=== PATIENT | female | born 1980 | race African-American/Black ===

== ENCOUNTER 2019-02-20 16:20 | Inpatient (IN) | payer OTHER ==
[~2019-02-20] VITALS: Ht 157.5 cm; Wt 65.8 kg
[2019-02-20 16:34] VITALS: BP 121/87
--- NOTE | 2019-02-20 16:40 | NUR ---
PT REFUSED A FLU SWAB AT THIS TIME.
[2019-02-20 17:13] LABS: HEMATOCRIT 40.5 % (37.0-47.0); HEMOGLOBIN 13.2 gm/dL (12.0-15.0); MCH 26.2 pg (26.0-34.0); MCHC 32.6 g/dL (28.0-37.0); MCV 80.4 fL (80.0-100.0); MPV 7.3 fl. (7.2-11.1); NUCLEATED RBCS 0 /100WBC; PLATELET COUNT* 346 thou/uL (150-400); RBC 5.04 mil/uL (4.20-5.00); RDW-CV 14.7 % (10.5-14.5); WBC 12.7 thou/uL (4.0-11.0)
[2019-02-20 17:22] LABS: CREATININE 1.1 mg/dL (0.6-1.3); POTASSIUM 3.8 mmol/L (3.5-5.1)
[2019-02-20 17:26] LABS: ALBUMIN 4.5 g/dL (3.4-5.0); TOTAL BILIRUBIN 0.4 mg/dL (<0.1-1.0); TOTAL PROTEIN 8.6 g/dL (6.4-8.2)
[2019-02-20 17:46] LABS: URINE BILIRUBIN NEGATIVE (Negative); URINE BLOOD 2+ (Negative); URINE CLARITY CLEAR; URINE COLOR YELLOW; URINE GLUCOSE-RANDOM NEGATIVE (Negative); URINE KETONES 2+ (Negative); URINE LEUKOCYTES-REFLEX TRACE (Negative); URINE NITRITE-REFLEX NEGATIVE (Negative); URINE PROTEIN 2+ (Negative); URINE UROBILINOGEN 0.2 E.U./dl (0.2-1.0)
[2019-02-20 17:54] LABS: MUCUS 4-6 Moderate strn/LPF (None Seen); SQUAMOUS >10 Many /LPF (0-3); URINE RBC 3-10 Few /HPF (0-2)
[2019-02-20 17:55] LABS: CASTS None Seen /LPF (None Seen); CRYSTALS None Seen /LPF (None Seen); URINE WBC-REFLEX 0-5 Rare /HPF (0-5)
[2019-02-20 18:25] LABS: ABSOLUTE LYMPHOCYTES 1.8 thou/uL (0.8-5.3); ABSOLUTE MONOCYTES 0.4 thou/uL (0.0-1.2); ABSOLUTE NEUTROPHILS 10.5 thou/uL (1.6-8.1); PLATELET ESTIMATE ADEQUATE
--- NOTE | 2019-02-20 19:41 | NUR ---
PASSENGER SERVICE MANAGER CALLED STATES PATIENT REFUSED BLOOD DRAW FOR LABORATORY SPECIMANS. ED TRAVELING SALES EXECUTIVE NOTIFIED OF THIS.
[2019-02-20 20:35] VITALS: BP 119/69
[2019-02-21 04:00] VITALS: BP 110/70
--- NOTE | 2019-02-21 06:46 | NUR ---
PATIENT ADMITTED TO ROOM 102 AT APPROXIMATELY 2044 FROM THE ER. VSS ON RA. PAIN WELL CONTROLLED. PATIENT ORIENTED TO ROOM AND POLICIES. FALL EDUCATION GIVEN AND FALL AGREEMENT SIGNED. IV FLUIDS STARTED IN RIGHT AC-NS @ 100ML/HR. PATIENT HAS REMAINED NPO SINCE MIDNIGHT. ASSESSMENT CHARTED. UROLOGY CONSULTED THIS AM. URINE STRAINED AND NO STONE RETRIEVED. PATIENT INSTRUCTED TO USE CALL LIGHT WHEN NEEDING ASSISTANCE. HOURLY ROUNDS MADE. WILL CONTINUE WITH PLAN OF CARE AND NURSING TO MONITOR.
[2019-02-21 08:00] VITALS: BP 119/79
[2019-02-21 09:01] VITALS: BP 110/70
--- NOTE | 2019-02-21 10:11 | EKG ---
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
--- NOTE | 2019-02-21 11:41 | NUR ---
ATTEMPTED TO MEET WITH PT, OFF UNIT IN SURGERY
--- NOTE | 2019-02-21 12:00 | NUR ---
PATIENT ARRIVED BACK FROM PACU AT 1145. ALERT AND ORIENTED X 4. VITAL SIGNS STABLE ON ROOM AIR. IV PATENT AND SALINE LOCKED. DENIES PAIN AND NAUSEA AT THIS TIME. CALL LIGHT WITHIN REACH. NURSING WILL CONTINUE TO MONITOR.
[2019-02-21 16:00] VITALS: BP 117/68
--- NOTE | 2019-02-21 16:47 | NUR ---
PATIENT ALERT AND ORIENTED X 4. VITAL SIGNS STABLE X 4. UP AD VIVIAN IN ROOM. IV PATENT AND SALINE LOCKED. VOIDING WITHOUT DIFFICULTY. DENIES PAIN AND NAUSEA AT THIS TIME. HOURLY ROUNDS MAINTAINED THROUGHOUT THE SHIFT. CALL LIGHT WITHIN REACH. NURSING WILL CONTINUE TO MONITOR.
[2019-02-21 17:36] VITALS: BP 117/68
[2019-02-21] MEDS ORDERED: CIPRO250 M2 PO (17:48)
[2019-02-21] MEDS ORDERED: LEVSIN0.125 MG PO (17:51)
[2019-02-21] MEDS ORDERED: IBU800 MG PO (17:53)
--- NOTE | 2019-02-21 18:45 | NUR ---
PATIENT DISCHARGED FROM UNIT AT 1830. ALERT AND ORIENTED X 4. VITAL SIGNS STABLE ON ROOM AIR. UP INDEPENDENTLY. IV DISCONTINUED. DENIES PAIN AND NAUSEA AT THIS TIME. DISCHARGE INSTRUCTIONS, MEDICATION INFORMATION, AND SCRIPTS GIVEN TO PATIENT. LEFT WITH ALL BELONGINGS. PATIENT LEFT WITH SIGNIFICANT OTHER VIA CAR.
[2019-02-21 18:47] VITALS: BP 117/68
--- NOTE | 2019-02-23 10:53 | CON ---
[address] [address] CONSULTATION Name: TORRITEODOROLITO Pacheco Room: [address]R.#: [id number] Admission: 02/20/19 Attend Phys: Rk Chacon Discharge: 02/21/19 Date of : 84 Report #: [id number] THIS REPORT FOR: //name// CC: [facility] Rk Velazquez Rubileslie Zamoranoh DATE OF SERVICE: 02/21/2019 REQUESTING PHYSICIAN: Dr. Velazquez. REASON FOR CONSULTATION: Right-sided flank pain and stone by CT. HISTORY OF PRESENT ILLNESS: This is a pleasant 38-year-old black female admitted through the Emergency Department yesterday with abdominal pain, right-sided back pain, nausea and vomiting. The patient reports that she had some chills at home, but was afebrile upon arrival. Her urinalysis was clear with the exception of a few red blood cells, again was afebrile, had a mildly elevated white blood cell count of 12.7 with no left shift and a normal creatinine of 1.1. She denies any prior history of stone disease, but had a CT scan performed that revealed a 6 mm right distal ureteral stone with possible forniceal rupture. ALLERGIES: TO LEVOTHYROXINE. PAST MEDICAL HISTORY: Significant for wisdom tooth removal. CURRENT MEDICATIONS: None. SOCIAL HISTORY: Patient does not use alcohol or drugs. REVIEW OF SYSTEMS: GENERAL: Positive for some decrease in appetite and chills. RESPIRATORY: No cough or shortness of breath. CARDIOVASCULAR: No chest pain or palpitations. GASTROINTESTINAL: Abdominal pain, nausea, vomiting, poor appetite. No diarrhea or constipation. GENITOURINARY: Has urinary frequency, flank pain. No dysuria. MUSCULOSKELETAL: Shows back pain on the right. Ten-point review of systems was reviewed, otherwise negative as per HPI or positive as per HPI. PHYSICAL EXAMINATION: GENERAL: The patient is awake and alert and oriented x 3. Blood pressure 121/87, temperature 36.4, respirations are 14. Her weight is 145 [place] [address] CONSULTATION Name: DAVID WILD Room: [address]#: [id number] Admission: 02/20/19 Attend Phys: Rk jimenez [place] Discharge: 02/21/19 Date of : 84 Report #: [id number] is currently in no acute distress, alert and oriented x 3. CHEST: Shows no evidence of respiratory distress. CARDIOVASCULAR: Regular rate and rhythm without murmur. ABDOMEN: Soft, nondistended, normoactive bowel sounds. No organomegaly or hernias. Currently, no CVA tenderness. EXTREMITIES: Moves all 4 without difficulty. NEUROLOGIC: Normal. SKIN: Normal. LABORATORY EVALUATION: As per history of present illness. CT scan was reviewed and again does reveal a 6 mm right distal ureteral stone. The patient had chills at home and does possibly have evidence of forniceal rupture and was given the options of management, which include: 1. MET. 2. MET with outpatient lithotripsy. 3. Ureteroscopic stone manipulation. ASSESSMENT AND PLAN: After consideration and discussion of the pros and cons, she has elected to proceed with ureteroscopic stone manipulation. In advance, she understands the procedure, risks, potential complications including but not limited to bleeding, infection, incomplete stone removal, need for ureteral stent, injury to the urinary tract, scar tissue formation or injury to adjacent structures. She accepts these and wishes to proceed directly with ureteroscopic stone manipulation. So, this is initial consultation with E and M and decision for surgery. <ELECTRONICALLY SIGNED> By: Chema Hernandez MD 02/23/19 1053 0912 [id number] Hernandez MD /nt
--- NOTE | 2019-02-23 10:53 | OP ---
[address] [address] OPERATIVE REPORT Name: TEODORO WILDLITO Pacheco Room: [address] M.R.#: [id number] Admission: 02/20/19 Attend Phys: Rk Chacon Discharge: 02/21/19 Date of : 84 Report #: [id number] THIS REPORT FOR: //name// CC: [facility] Rk Arnoldleslie Jeronimo DATE OF SERVICE: 02/21/2019 PREOPERATIVE DIAGNOSIS: Right ureteral obstruction. POSTOPERATIVE DIAGNOSIS: Right ureteral obstruction secondary to a 6 mm right distal ureteral stone. PROCEDURES PERFORMED: Cystoscopy, right retrograde pyelogram, right ureteroscopy with laser lithotripsy, stone basketing and JJ stent placement. SURGEON: Chema Hernandez MD COMPLICATIONS: None. FINDINGS: A 4.8 x 28 cm double-J stent in the right ureter. ANESTHETIC: General. BLOOD LOSS: None. SPECIMEN: Stone fragments to pathology. STATEMENT OF MEDICAL INDICATION: This is a 38-year-old black female admitted yesterday with severe right-sided flank pain. She reported subjective fever and chills prior to admission, but did not have any since admission. She had a slightly elevated white blood cell count, but noninfected urine and a normal creatinine. She had continued to have pain and desires to have the stone addressed this admission. We discussed the options of management including MET, ESWL, URS, and she has elected to proceed with ureteroscopic stone manipulation. In advance, we discussed the procedure, risks, potential complications including but not limited to bleeding, infection, injury to the urinary tract, incomplete removal of stone, need for additional procedures, injury to the urinary tract or adjacent structures. DESCRIPTION OF PROCEDURE: Following informed consent, the patient was taken to the operating room and placed under general anesthesia, prepped and draped in sterile fashion in dorsal lithotomy position. Cystoscopy was carried out. There was moderate edema surrounding the right intramural tunnel and some erythema surrounding the right ureteral orifice. Right [place] [address] OPERATIVE REPORT Name: DAVID WILD Room: [address] IN ..#: [id number] Admission: 02/20/19 Attend Phys: Rk Chacon Discharge: 02/21/19 Date of : 84 Report #: [id number] cannulated using a 6-Moroccan Pollack catheter. Retrograde pyelogram revealed a full column of contrast down to the level of the distal ureter. Filling defect was located at this level. A floppy tipped guidewire was advanced beyond the stone up into the renal collecting system and the semirigid ureteroscope inserted alongside the wire and within the intramural tunnel, the stone was located. A 365 micron holmium laser fiber was used to fragment the stone into multiple small pieces. The largest of these were engaged in a basket removed and submitted for pathologic examination. Following this, reinspection of the more proximal ureter was normal. There were no residual stone fragments larger than 1 mm left remaining. Therefore, the cystoscope was backloaded over the wire and a 4.8 x 28 cm stent was placed with a coil in renal pelvis and a coil in the bladder. Bladder was drained. The patient given Uro-Jet per urethra, B and O suppository, Toradol injection and returned to recovery room in satisfactory condition. The patient can be discharged from the hospital today per the hospitalist and will follow up in the office in 1 week for cystoscopy and stent removal. She does not need a KUB. <ELECTRONICALLY SIGNED> By: Chema Hernandez MD 02/23/19 1053 1049 [id number] Hernandez MD /nt
== END 2019-02-21 18:30 | disposition home or self-care (01) | DRG 660 ==
LOC: M.ERS 16:20 → M.TBA-ER 18:57 → M.ORTHSURG 18:57
PROVIDERS: Nurse Practitioner Family; ADMIT Family Medicine
PROC: BT1D1ZZ Fluoroscopy of Right Kidney, Ureter and Bladder using Low Osmolar Contrast (ICD-10-PCS; principal; 2019-02-21)
PROC: 0TC68ZZ Extirpation of Matter from Right Ureter, Via Natural or Artificial Opening Endoscopic (ICD-10-PCS; principal; 2019-02-21)
PROC: 0T768DZ Dilation of Right Ureter with Intraluminal Device, Via Natural or Artificial Opening Endoscopic (ICD-10-PCS; principal; 2019-02-21)
DX: N13.6 Pyonephrosis (principal); R65.10 Systemic inflammatory response syndrome (SIRS) of non-infectious origin without acute organ dysfunction; F12.90 Cannabis use, unspecified, uncomplicated; Z88.8 Allergy status to other drugs, medicaments and biological substances